=== PATIENT | male | born 1980 | race Caucasian/White ===

== ENCOUNTER 2018-10-09 15:45 | Emergency (ER) | payer BC ==
[2018-10-09 15:54] VITALS: RESP 16
[2018-10-09] MEDS ORDERED: LIDOCAINE 1% INJ 10MG/ML (20 ML MDV) SQ ONE (16:00)
[2018-10-09] MEDS ORDERED: DIPH,PERTUS(ACELL)TETVAC-LF 0.5 ML VIAL IM ONE (17:01)
--- NOTE | 2018-10-09 17:03 | ED ---
General Adult HPI - General Chief complaint: Wound/Laceration Stated complaint: Thumb lac Time Seen by Provider: 10/09/18 15:59 Source: patient Mode of arrival: ambulatory Limitations: no limitations - History of Present Illness Initial comments: Patient is a 38-year-old male presenting to the emergency department with a laceration on the right first digit. Patient reports using a wood box maker when he lacerated his right thumb approximately one hour ago. Patient denies numbness or tingling and has full range of motion. Patient reports the pain is minimal and does not radiate anywhere. Patient denies taking medication to relieve the pain. Patient does not use blood thinners. Patient is unaware of his tetanus status. She denies foreign bodies at site of injury. Patient denies erythema, swelling or skin discoloration at the site of injury. - Related Data Home Medications Medication Instructions Recorded Confirmed No Known Home Medications 10/09/18 10/09/18 Allergies Allergy/AdvReac Type Severity Reaction Status Date / Time Anesthetics - Paige Type- Allergy Unknown Verified 10/09/18 16:44 Parabens Review of Systems ROS Statement: Those systems with pertinent positive or pertinent negative responses have been documented in the HPI. ROS Other: All systems not noted in ROS Statement are negative. Past Medical History Past Medical History: No Reported History History of Any Multi-Drug Resistant Organisms: None Reported Past Surgical History: Appendectomy, Orthopedic Surgery Past Psychological History: No Psychological Hx Reported Smoking Status: Never smoker Past Alcohol Use History: None Reported Past Drug Use History: None Reported General Exam - General Exam Comments Initial Comments: General: Well-developed well-nourished distress HEENT: Normocephalic/atraumatic, PERLL, pharynx erythema, swallowing well, EAC no erythema, no exudates, TM clear, no cervical lymph nodes Neck: Supple, nontender, trachea midline Chest/Lungs: Normal respirations, no signs of respiratory distress clear to auscultation bilaterally no wheezes, rales, rhonchi Cardiac: Regular rate and rhythm, normal S1-S2, no murmurs rubs or gallops Abdomen/GI: Soft nontender, bowel sounds equal or quadrant x4, no guarding, no rebound no CVA tenderness Musculoskeletal: +2 radial and ulnar pulses, bilaterally. Normal capillary refill, bilaterally. Laceration on right thumb measuring 3 cm. No active bleeding. Skin: Warmth, no rashes or lesions, no cyanosis or diaphoresis Neurologic: AAO x 3, CN 2-12 intact, Psychiatric: Mood and affect normal, judgment normal Limitations: no limitations Course Vital Signs 10/09/18 10/09/18 15:52 17:34 Temperature 98.5 F 98.1 F Pulse Rate 71 70 Respiratory 16 16 Rate Blood Pressure 138/88 129/80 O2 Sat by Pulse 98 99 Oximetry Procedures - Laceration Laceration #1 Consent Obtained: verbal consent Indication: laceration Site: hand (Right first digit) Size (cm): 3 Description: linear Depth: simple, single layer Anesthetic Used: lidocaine 1% Anesthesia Technique: local infiltration Amount (mls): 5 Pre-repair: irrigated extensively Type of Sutures: nylon Size of Sutures: 4-0 Number of Sutures: 5 Technique: simple, interrupted Patient Tolerated Procedure: well Medical Decision Making - Medical Decision Making Patient is a 38 year male presents emergency Department with a laceration on his right first digit. Patient was given tetanus prophylaxis. The laceration site was repaired with 5 suture and patient tolerated well. Patient advised to return to emergency department in 14 days for suture removal or sooner if s ymptoms worsen. Patient advised to follow proper wound care instructions. Patient advised to follow primary care. Case discussed with physician. Disposition Clinical Impression: Laceration Disposition: HOME SELF-CARE Condition: Stable Additional Instructions: Please follow proper wound care instructions. Please follow-up with primary care. Please return to emergency department in 10-14 days for suture removal or sooner if symptoms worsen. Is patient prescribed a controlled substance at d/c from ED?: No Referrals: None,Stated [Primary Care Provider] - 1-2 days Time of Disposition: 17:03
[2018-10-09 17:35] VITALS: BP 129/80; PULSE 70; TEMP 98.1
== END 2018-10-09 17:21 | disposition home or self-care (01) ==
LOC: EC 15:45
DX: S61.011A Laceration without foreign body of right thumb without damage to nail, initial encounter (principal); Z23 Encounter for immunization; Z88.4 Allergy status to anesthetic agent; W27.8XXA Contact with other nonpowered hand tool, initial encounter
CPT/HCPCS: 90715; 99282; 12002; 90471; J2001

== ENCOUNTER 2020-03-31 11:39 | Emergency (ER) | payer BC ==
[2020-03-31 11:49] VITALS: RESP 18; TEMP 98
[2020-03-31] MEDS ORDERED: LIDOCAINE 1% INJ 10MG/ML (20 ML MDV) SQ ONE (12:18)
[2020-03-31] MEDS ORDERED: BACITRACIN OINT 1 EACH PACKET TOPICAL ONE (12:18)
--- NOTE | 2020-03-31 12:43 | XR ---
EXAMINATION TYPE: XR finger RT DATE OF EXAM: 03/31/2020 COMPARISON: None HISTORY: Laceration TECHNIQUE: Three-view right index finger FINDINGS: There is soft tissue injury over the pad of the index finger. The osseous structures are in tact. No acute fracture or dislocation is evident. Joint spaces are preserved. No radiopaque foreign bodies evident. IMPRESSION: 1. Soft tissue injury distal index finger. 2. No acute osseous abnormality.
--- NOTE | 2020-03-31 13:19 | ED ---
Wound/Laceration HPI - General Chief Complaint: Wound/Laceration Stated Complaint: R Index Finger Injury Time Seen by Provider: 03/31/20 11:52 Source: patient Mode of arrival: ambulatory Limitations: no limitations - History of Present Illness Initial Comments: Patient is a 39-year-old male presenting to the emergency Department with complaints of a laceration to his right distal index finger. This happened about half hour prior to arrival. Patient states he was using a hand drill with his left hand as he is left-hand dominant, and accidentally pushed the drill and it hit his right index finger. He is up-to-date with his tetanus vaccine. He denies being on blood thinners, bleeding is controlled at this time with a bandage. There are no further complaints at this time. - Related Data Previous Rx's Medication Instructions Recorded Cephalexin [Keflex] 500 mg PO BID 5 Days #10 cap 03/31/20 Allergies Allergy/AdvReac Type Severity Reaction Status Date / Time Anesthetics - Paige Type- Allergy Unknown Verified 03/31/20 11:47 Parabens Review of Systems ROS Statement: Those systems with pertinent positive or pertinent negative responses have been documented in the HPI. ROS Other: All systems not noted in ROS Statement are negative. Past Medical History Past Medical History: No Reported History History of Any Multi-Drug Resistant Organisms: None Reported Past Surgical History: Appendectomy, Orthopedic Surgery Past Psychological History: No Psychological Hx Reported Smoking Status: Current some day smoker Past Alcohol Use History: None Reported Past Drug Use History: None Reported General Exam - General Exam Comments Initial Comments: GENERAL: Patient is well-developed and well-nourished. Patient is nontoxic and in no acute distress. HEAD: Atraumatic, normocephalic. EYES: Pupils equal round and reactive to light, extraocular movements intact, sclera anicteric, conjunctiva are normal. Eyelids were unremarkable. ENT: Nares patent, oropharynx clear without exudates. Moist mucous membranes. NECK: Normal range of motion, supple without lymphadenopathy or JVD. LUNGS: Unlabored respirations. Breath sounds clear to auscultation bilaterally and equal. No wheezes rales or rhonchi. HEART: Regular rate and rhythm without murmurs, rubs or gallops. ABDOMEN: Soft, nontender, normoactive bowel sounds. No guarding, no rebound. No masses appreciated. : Deferred MUSCULOSKELETAL: Patient has full range of motion of the right hand and fingers. Normal extremities with adequate strength and normal range of motion, no pitting or edema. No clubbing or cyanosis. NEUROLOGICAL: Patient is alert and oriented x 3. Motor and sensory are also intact. Normal speech, normal gait. PSYCH: Normal mood, normal affect. SKIN: Warm, Dry, normal turgor, no rashes. Patient has a 1.5 cm laceration to the distal end of the right index finger, palmar aspect. This is a jagged laceration. Bleeding is controlled. Limitations: no limitations Course Vital Signs 03/31/20 03/31/20 11:46 13:27 Temperature 98.0 F Pulse Rate 83 77 Respiratory 18 18 Rate Blood Pressure 146/78 123/79 O2 Sat by Pulse 100 99 Oximetry Procedures - Laceration Laceration #1 Consent Obtained: verbal consent Indication: laceration Site: hand Size (cm): 0 (1.5cm) Description: flap, irregular Depth: simple, single layer Anesthetic Used: lidocaine 1% Anesthesia Technique: local infiltration Amount (mls): 3 Pre-repair: irrigated extensively Type of Sutures: nylon Size of Sutures: 5-0 Number of Sutures: 5 Technique: simple, interrupted Patient Tolerated Procedure: well Medical Decision Making - Medical Decision Making Patient is a 39-year-old male here with a 1.5 cm jagged irregular laceration of the distal end of the right index finger, palmar aspect. His tetanus vaccine is up-to-date. His wound was cleaned, closed with 5, 5-0 sutures. Patient tolerated procedure well. I will start him on Keflex for 1 week to prevent infection. He is in agreement with this plan of care. He will have sutures removed in 7-10 days. He is stable for discharge. Disposition Clinical Impression: Laceration of right index finger Disposition: HOME SELF-CARE Condition: Stable Instructions (If sedation given, give patient instructions): Care For Your Stitches (ED) Additional Instructions: Please return to the Emergency Department if symptoms worsen or any other concerns. Keep area clean and dry. Keep area covered. Take antibiotics as prescribed. Stitches need to be removed in 7-10 days. Prescriptions: Cephalexin [Keflex] 500 mg PO BID 5 Days #10 cap Is patient prescribed a controlled substance at d/c from ED?: No Referrals: None,Stated [Primary Care Provider] - 1-2 days
[2020-03-31 13:28] VITALS: BP 123/79; PULSE 77
== END 2020-03-31 13:27 | disposition home or self-care (01) ==
LOC: EC 11:39
DX: S61.210A Laceration without foreign body of right index finger without damage to nail, initial encounter (principal); F17.200 Nicotine dependence, unspecified, uncomplicated; Z88.6 Allergy status to analgesic agent; Z90.49 Acquired absence of other specified parts of digestive tract; W29.8XXA Contact with other powered hand tools and household machinery, initial encounter
CPT/HCPCS: 73140; 99283; 12001; J2001